=== PATIENT | female | born 2000 | race Asian ===

== ENCOUNTER 2021-03-13 15:30 | Outpatient (RCR) | payer BC | END 2021-04-09 | disposition home or self-care (01) | LOC: MKS.ESL.PT | DX: Q65.89 Other specified congenital deformities of hip (principal); Z98.890 Other specified postprocedural states ==

== ENCOUNTER → 2021-04-29 09:22 | Outpatient (RCR) | payer BC | END | disposition home or self-care (01) | LOC: MKS.ESL.PT 04-24 13:00 | DX: Z98.890 Other specified postprocedural states (principal) ==

== ENCOUNTER 2022-01-11 21:01 | Emergency (ER) | payer BC ==
[~2022-01-11] VITALS: Ht 154.9 cm; Wt 54.5 kg
[2022-01-11 21:14] VITALS: TEMP 98.3
[2022-01-11 22:00] VITALS: BP 117/73; PULSE 64
[2022-01-11 22:48] LABS: MONOSCREEN NEGATIVE
[2022-01-11] MEDS ORDERED: TORADOL 10MG TA10 MG PO (22:53)
== END 2022-01-11 22:00 | disposition home or self-care (01) ==
LOC: COL.ER 21:01
PROVIDERS: Emergency Medicine
DX: U07.1 COVID-19 (principal); Z28.310 Unvaccinated for COVID-19
CPT/HCPCS: J1200; J2405; J2930; J7030

== ENCOUNTER 2022-02-03 16:24 | Emergency (ER) | payer BC ==
[~2022-02-03] VITALS: Ht 154.9 cm; Wt 54.5 kg
[~2022-02-03 16:24] MED LIST: TORADOL 10MG TA10 MG PO
[2022-02-03 17:10] VITALS: TEMP 97.8
[2022-02-03 17:42] LABS: COLLECTION METHOD CLEAN CATCH
[2022-02-03 17:57] LABS: URINE APPEARANCE Clear (CLEAR/HAZY); URINE BLOOD Negative (NEGATIVE); URINE COLOR Yellow (YELLOW); URINE GLUCOSE Negative (NEGATIVE); URINE KETONE Negative (NEGATIVE); URINE NITRATE Negative (NEGATIVE); URINE PROTEIN(semi-quant) Negative (NEGATIVE); URINE UROBILINOGEN 0.2 E.U/dL (0.2-1.0)
[2022-02-03 18:01] LABS: SQUAMOUS EPITHELIAL 0-2 /hpf (0-10); URINE BACTERIA Rare /hpf (NONE SEEN); URINE RBC None Seen /hpf (0-2)
[2022-02-03 18:52] VITALS: BP 112/86; PULSE 85
== END 2022-02-03 19:03 | disposition home or self-care (01) ==
LOC: COL.ER 16:24
PROVIDERS: Physician Assistant
DX: U07.1 COVID-19 (principal)
CPT/HCPCS: J1885